=== PATIENT | female | born 1950 | race Caucasian/White ===

== ENCOUNTER 2016-12-14 08:30 | Emergency (ER) | payer OTHER ==
[~2016-12-14] VITALS: Ht 151.1 cm; Wt 65.0 kg
[2016-12-14 08:35] VITALS: TEMP 36.9; Ht 151.1 cm; Wt 65.0 kg
--- NOTE | 2016-12-14 09:21 | DIAGNOSTIC IMAGING REPORT ---
R ANKLE MIN 3 VIEWS ROUTINE CLINICAL HISTORY: Right ankle pain and swelling. Evaluate for fracture. COMPARISON: None FINDINGS: Note is made of an acute oblique mildly displaced distal right fibular fracture which extends from the level of the tibiotalar joint 2.3 cm proximally. There is also an acute minimally displaced fracture of the medial malleolus. No ankle mortise widening is identified. There is marked lateral ankle soft tissue swelling in mild medial ankle soft tissue swelling. IMPRESSION: 1. Acute mildly displaced oblique fracture of the distal right fibula and acute minimally displaced fracture of the medial malleolus. 2. No ankle mortise widening. 3. Marked lateral ankle soft tissue swelling. Electronically signed by: Minor Degroot M.D. 12/14/2016 9:20 AM Dictated Date/Time: 12/14/2016 9:18 AM
[2016-12-14] MEDS ORDERED: OXYCODONE HCL IR 5 MG TAB (IMMEDIATE RELEASE) PO STA (09:44)
[2016-12-14] MEDS ORDERED: OXYC1TAB3 PO (09:45)
--- NOTE | 2016-12-14 09:46 | EMERGENCY ROOM VISIT NOTE ---
ED Visit Note First contact with patient: 08:44 CHIEF COMPLAINT: Right ankle injury 2 hours ago HISTORY OF PRESENT ILLNESS: Patient is a 66-year-old white female who presents emergency department for evaluation of right ankle pain after an injury that occurred at work about an hour and half ago. 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 She states that she slipped on a wet floor and fell and the right ankle twisted. She reported hearing a popping sound at the time of the injury. She tried to get up and bear weight, but was completely unable to, and called for help from her coworkers. She was given ibuprofen 400 mg. She rates her pain a 3/10 presently, but states that it is worsening. She denies any other injuries related to the fall. No numbness or weakness of the foot. REVIEW OF SYSTEMS: Review of systems as per HPI. All other systems reviewed were negative. At least 6 systems reviewed. PMH: Electronic medical records are reviewed and summarized as above/below. See Problem List. SOCIAL HISTORY: Patient lives at home with her spouse. Employed. Former smoker. PHYSICAL EXAM: Vital Signs: Reviewed Nurses' notes. MENTAL STATUS: Patient is a pleasant, well-appearing 66-year-old white female who is awake and alert and sitting in a wheelchair in no acute distress MUSCULOSKELETAL: Examination of the right ankle show a soft tissue swelling, both medial and laterally, with a palpable joint effusion. She is tender over the medial and the lateral malleolus. No pain over the fifth metatarsal or the fibular head. Dorsalis pedis and posterior tibialis pulses are easily palpable. Sensation light touch is intact. She can wiggle and move her toes without difficulty. SKIN: Normal. NEUROVASCULAR: Sensation intact to pain and light touch, foot is warm and well- perfused, dorsalis pedis pulse is palpable. EMERGENCY DEPARTMENT COURSE: X-rays of the right ankle were obtained and consistent with a bimalleolar fracture. No ankle mortise widening was noted. Patient was placed in a short leg posterior and sugar tong Ortho-Glass splint. She was instructed on a nonweight bearing gait using crutches. She was medicated with oxycodone 10 mg orally in the emergency department. She will follow up with [facility] as they are covered on her worker's compensation panel. The patient rated her pain a 5/10 at discharge. Differential diagnosis includes ankle versus metatarsal fracture, sprain, dislocation, contusion, among others. Medication reconciliation: I attest that I have personally reviewed the patient' s current medication list. Blood pressure screening : Patient was found to have normal blood pressure on screening and does not require follow-up. R ANKLE MIN 3 VIEWS ROUTINE CLINICAL HISTORY: Right ankle pain and swelling. Evaluate for fracture. COMPARISON: None FINDINGS: Note is made of an acute oblique mildly displaced distal right fibular fracture which extends from the level of the tibiotalar joint 2.3 cm proximally. There is also an acute minimally displaced fracture of the medial malleolus. No ankle mortise widening is identified. There is marked lateral ankle soft tissue swelling in mild medial ankle soft tissue swelling. IMPRESSION: 1. Acute mildly displaced oblique fracture of the distal right fibula and acute minimally displaced fracture of the medial malleolus. 2. No ankle mortise widening. 3. Marked lateral ankle soft tissue swelling. Problem List Medical Problems: (1) Asthma Status: Chronic (2) Hypertension Status: Chronic Surgical Problems: (1) History of cholecystectomy Status: Resolved (2) History of herniorrhaphy Status: Resolved (3) History of tonsillectomy Status: Resolved Current/Historical Medications Scheduled Aspirin (Aspirin Ec), 81 MG PO DAILY Citalopram (Citalopram Hydrobromide), 1 TAB PO DAILY Levothyroxine Sodium (Synthroid), 1 TAB PO DAILY Lisinopril/Hctz (Zestoretic 20MG/25MG), 1 TAB PO DAILY Multivitamin (Multivitamin), 1 TAB PO DAILY Omeprazole (Prilosec), 20 MG PO DAILY Scheduled PRN Albuterol Hfa (Ventolin Hfa), 2-4 PUFFS INH Q6H PRN for SOB/Wheezing Oxycodone Immediate Rel Tab (Roxicodone Ir), 1-2 TAB PO Q4H PRN for Severe Pain Allergies Coded Allergies: No Known Allergies (Unverified , 12/14/16) Vital Signs Date Time Temp Pulse Resp B/P (MAP) Pulse Ox O2 Delivery O2 Flow Rate FiO2 12/14/16 10:36 61 16 139/85 95 12/14/16 08:35 36.9 63 20 141/75 97 Room Air Medications Administered Medications (Trade) Dose Ordered Sig/Tj Route Start Time Stop Time Status Last Admin Dose Admin Oxycodone HCl (Roxicodone Immediate Rel Tab) 10 mg NOW STAT PO 12/14/16 09:44 12/14/16 09:45 DC 12/14/16 10:34 10 MG Departure Information Impression Primary Impression: Bimalleolar fracture of right ankle Additional Impression: Work related injury Prescriptions Oxycodone Immediate Rel Tab (ROXICODONE IR) 5 Mg Tab 1-2 TAB PO Q4H Y for Severe Pain, #30 TAB For Initial Treatment Prov: Cony Ha PA 12/14/16 Referrals Oswaldo Miller D.O. (PCP) Patient Instructions My [facility] Additional Instructions DO NOT drive, drink alcohol, operate machinery, or perform dangerous activities today. You were given medications in the ER that can affect your ability to safely function or operate a vehicle. Oxycodone (OxyIR) 5mg: Take 1-2 pills every four hours for breakthrough pain. Avoid alcohol, operating machinery or dangerous equipment, working on ladders or roofs, DRIVING, or situations where being under the influence may be dangerous. It is recommended to use an ityw-jfx-syxswwr stool softener such as Colace, 100mg twice daily while taking this medication to avoid constipation. Acetaminophen(Tylenol) may be used for fever or pain. Use 1000mg every six hours as needed. Avoid using more than 3000mg in a 24 hour period. This medication can be taken if you need to drive, work, or perform activities which may be dangerous when taking narcotic pain medication. Ice compresses for 20 minutes at a time four times daily for 2-3 days. Use the crutches as instructed. Rest and elevate your injury. Do not get the splint wet. If your splint feels excessively tight, you have worsening pain, develop numbness or tingling, or your digits appear blue, loosen the roberto wrap. Then reapply the roberto wrap gently without removing the splint. If your symptoms are not quickly relieved return to the ER for re- evaluation. Continue current medications. Return to the ER immediately for any numbness, tingling, severe pain, extreme swelling in the extremity or as needed. Call [facility] today to arrange follow up for your injury. Problem Qualifiers Primary Impression: Bimalleolar fracture of right ankle Encounter type: initial encounter Fracture type: closed Qualified Codes: S82.841A - Displaced bimalleolar fracture of right lower leg, initial encounter for closed fracture
[2016-12-14] MEDS ORDERED: LISI-788 PO (09:59)
[2016-12-14] MEDS ORDERED: ASPI81TA28 PO (09:59)
[2016-12-14] MEDS ORDERED: VNTHFA/IN INH (09:59)
[2016-12-14] MEDS ORDERED: MULT-506 PO (09:59)
[2016-12-14] MEDS ORDERED: LEVO50TA PO (09:59)
[2016-12-14] MEDS ORDERED: CLX/20 PO (09:59)
[2016-12-14] MEDS ORDERED: PRLSR20 PO (09:59)
[2016-12-14 10:36] VITALS: BP 139/85; PULSE 61; O2SAT 95
[2016-12-16] MEDS ORDERED: LEVO25TA PO (07:38)
[2016-12-16] MEDS ORDERED: OXYC1TAB3 PO (07:38)
[2016-12-16] MEDS ORDERED: CLX20 PO (07:38)
[2016-12-17] MEDS ORDERED: OXYC-57 PO (15:44)
== END 2016-12-14 10:38 | disposition home or self-care (01) ==
LOC: C.EDB 08:31
DX: S82.841A Displaced bimalleolar fracture of right lower leg, initial encounter for closed fracture (principal); W01.0XXA Fall on same level from slipping, tripping and stumbling without subsequent striking against object, initial encounter; Y92.89 Other specified places as the place of occurrence of the external cause; Y99.0 Civilian activity done for income or pay; Z87.891 Personal history of nicotine dependence; J45.909 Unspecified asthma, uncomplicated; I10 Essential (primary) hypertension; Z90.49 Acquired absence of other specified parts of digestive tract; Z79.82 Long term (current) use of aspirin; Z79.899 Other long term (current) drug therapy

== ENCOUNTER → 2016-12-15 | Outpatient (CLI) | payer OTHER ==
[~2016-12-15] MED LIST: ASPI81TA28 PO; CLX/20 PO; CLX20 PO; LEVO25TA PO; LEVO50TA PO; LISI-788 PO; MULT-506 PO; OXYC-57 PO; OXYC1TAB3 PO; PRLSR20 PO; VNTHFA/IN INH
[2016-12-15 13:55] LABS: BASO % 0.1 %; BASO ABS # 0.01 K/uL (0-0.2); COMPLETE YES; EOS % 0.5 %; HEMATOCRIT 37.1 % (37-47); IG% 0.2 %; LYMPH % 13.4 %; LYMPH ABS # 1.08 K/uL (1.2-3.4); MEAN CELL VOLUME 86.3 fL (80-100); MEAN CORPUSCULAR HEMOGLOBIN 28.1 pg (25-34); MEAN CORPUSCULAR HGB CONC 32.6 g/dl (32-36); MEAN PLATELET VOLUME 10.7 fL (7.4-10.4); MONO % 8.2 %; NEUT % 77.6 %; PLATELET COUNT 253 K/uL (130-400); WHITE BLOOD COUNT 8.03 K/uL (4.8-10.8)
[2016-12-15 14:10] LABS: BLOOD UREA NITROGEN 17 mg/dl (7-18); BUN/CREATININE RATIO 21.5 (10-20); CALCIUM 9.6 mg/dl (8.5-10.1); CARBON DIOXIDE 30 mmol/L (21-32); CHLORIDE 100 mmol/L (98-107); CREATININE 0.78 mg/dl (0.60-1.20); GLUCOSE 120 mg/dl (70-99); POTASSIUM 3.8 mmol/L (3.5-5.1); SODIUM 135 mmol/L (136-145)
== END | disposition home or self-care (01) ==
LOC: C.LABBC 10:30
PROVIDERS: ATTEND Orthopaedic Surgery
DX: S82.841A Displaced bimalleolar fracture of right lower leg, initial encounter for closed fracture (principal); X58.XXXA Exposure to other specified factors, initial encounter

== ENCOUNTER → 2016-12-17 | Day surgery (SDC) | payer OTHER ==
[2016-12-16 07:38] VITALS: Ht 151.1 cm; Wt 65.5 kg
[~2016-12-17] VITALS: Ht 151.1 cm; Wt 65.5 kg
[~2016-12-17] MED LIST changes: +ATROPINE SULFATE 0.1 MG/ML 5ML SYR IV PRN; +BUPIVACAINE/EPINEPHRINE 0.25% 1:200,000 30 ML VIAL ONE; +CEFAZOLIN 2000 MG/60 ML D5W IV SCH; -CLX/20 PO; +DEXAMETHASONE SOD INJ 4 MG/ML VIAL ONE; +EpHEDrine SULFATE INJ 50 MG/ML AMP IV PRN; +FENTANYL CITRATE INJ 50 MCG/1 ML 2 ML VIAL IV PRN; +FENTANYL CITRATE INJ 50 MCG/1 ML 2 ML VIAL ONE; +LACTATED RINGER'S 1000ML 1,000 ML IV SCH; -LEVO50TA PO; +LIDOCAINE HCL 2% 2 ML VIAL (20MG/ML) ONE; +MIDAZOLAM HCL 1 MG/ML 2ML VIAL ONE; +ONDANSETRON INJ 2 MG/ML 2 ML VIAL IV PRN; +ONDANSETRON INJ 2 MG/ML 2 ML VIAL ONE; +OXYCODONE/ACETAMINOPHEN 5-325 TAB PO PRN; +PROMETHAZINE HCL INJ 6.25 MG in SODIUM CHLORIDE 0.9% 50ML 50 ML IV PRN; +PROPOFOL IV EMULSION 10 MG/ML 20 ML VIAL IV ONE; +SODIUM CHLORIDE 0.9% 1000ML 1,000 ML IV SCH
--- NOTE | 2016-12-17 11:10 | History & Physical Bridge - SC ---
H&P Re-Evaluation Bridge Note: I have examined the patient, reviewed the History & Physical and in the interval since the performance of the History & Physical I have noted the following changes of clinical significance: No changes noted
[2016-12-17 15:45] VITALS: TEMP 36.6
--- NOTE | 2016-12-17 15:46 | Discharge Instructions-SurgCtr ---
Discharge Instructions Date of Service Dec 17, 2016. Visit Reason for Visit: Closed Right Bimalleolar Fracture Discharge Discharge Diagnosis / Problem: SAME ABOVE Discharge Goals Goal(s): Decrease discomfort, Improve function Medications Stopped Medications Name(s): Only took thyroid medication this morning. Restart Stopped Medication(s): MAY RESTART MEDICATIONS 12/17/2016 Activity Recommendations Activity Limitations: as noted below Lifting Limitations: until after follow-up appointment Exercise/Sports Limitations: until after follow-up appointment Weightbearing Status: Right non-weightbearing Anesthesia . Post Anesthesia Instructions: If you have had General Anesthesia or IV Sedation: * Do not drive today. * Resume driving when surgeon permits. * Do not make important decisions or sign legal documents today. * Call surgeon for: 1. Temperature elevations greater than 101 degrees F. 2. Uncontrollable pain. 3. Excessive bleeding. 4. Persistent nausea and vomiting. 5. Medication intolerance (nausea, vomiting or rash). * For nausea and vomiting use only clear liquids such as: tea, soda, bouillon until nausea subsides, then gradually increase diet as tolerated. * If you have any concerns or questions, call your surgeon's office. If physician is unavailable and it is an emergency, call 911 or go to the nearest emergency room. . Instructions / Follow-Up Instructions / Follow-Up MEDICATIONS: * Resume previous medications unless instructed otherwise by your surgeon. * Always take pain medication on a full stomach or with food to avoid upset stomach. * Do not drink alcohol or drive while taking narcotics. * Ibuprofen or Tylenol may be taken if narcotic not needed. SPECIAL CARE INSTRUCTIONS: __ None _X_ Keep extremity elevated and iced x 48 hours; apply ice 20-30 minutes 8-10 times/day. May remove at night. _X_ Crutches __ May discard when able __ Brace/Post-op shoe __ 24 hrs/day __ Remove at night _X_ Dressing _X_ Maintain until seen in office, may shower with plastic over site __ Remove dressings in 24-48 hours and then may shower __ Cover incisions with band-aids after showering __ Do not remove steri-strips Call physician if chills or temperature rises above 102 degrees or pain unrelieved by prescribed pain medications. Office [phone] Diet Recommendations Home Diet: no limitations Fluid Restriction: None Procedures Procedures Performed: Right Open Reduction Internal Fixation Bimalleolar Fracture Pending Studies Studies pending at discharge: no Work Instructions Return To Work: after follow-up Medical Emergencies . Who to Call and When: Medical Emergencies: If at any time you feel your situation is an emergency, please call 911 immediately. . Non-Emergent Contact Non-Emergency issues call your: Primary Care Provider Call Non-Emergent contact if: you have a fever, temperature is above 101.5 . . "Provider Documentation" section prepared by Dustin De La O. .
--- NOTE | 2016-12-17 15:48 | OPERATIVE REPORT ---
DATE OF OPERATION: 12/17/2016 PREOPERATIVE DIAGNOSIS: Right bimalleolar ankle fracture. POSTOPERATIVE DIAGNOSIS: Same. PROCEDURE: Open reduction and internal fixation of right bimalleolar ankle fracture. SURGEON: Dr. Greg Hemphill. DISPERSION MIXER: Bishnu De La O PA-C, whose assistance was necessary for positioning of the ankle and helping with instrumentation. ANESTHESIA: General with a right regional block. COMPLICATIONS: None. CONDITION: Stable to PACU. IMPLANTS USED: I used a Synthes 1/3 tubular locking plate laterally and two 4-0 cannulated screws medially. INDICATIONS: Bri is a pleasant 66-year-old female who twisted and fractured her right ankle several days ago. She went to the Emergency Room and came to my office and radiographs demonstrated a mildly displaced bimalleolar ankle fracture. She elected to undergo an open reduction and internal fixation. DESCRIPTION OF PROCEDURE: On 12/17/2016, she arrived at [facility] for the above procedure. She was seen in the preoperative holding area and the operative extremity was identified and signed. She was given a preoperative antibiotic and a right regional block. She was taken back to the operating room, laid on the table in supine position and put under general anesthesia. The right ankle was then prepped and draped in sterile fashion. Time-out was done and the patient and operative extremity was properly identified. A longitudinal incision was made over the distal fibula. Dissection was taken down through the fascia with care not to disrupt the intermediate branch of the peroneal nerve. The fracture was exposed. The fracture was easily reduced. An 8-hole 1/3 tubular plate was placed. The distal end of the plate was bent over the distal fibula. Locking screw was placed both proximally and distally. X-ray was taken and I was happy with the overall reduction of the fracture and the alignment of the plate. Three more locking screws were placed proximally and 1 more locking screws were placed distally. This gave good fixation. Attention was then turned to the medial side. A curvilinear incision was made over the medial malleolus. Dissection was taken down to the fracture and a clamp was used to reduce the medial malleolar fragment. Two K wires were placed and position was checked under fluoroscopy. A 4-0 long threaded cannulated screw was placed perpendicular to the fracture. This gave good fixation. Two screws were placed in total. The K wires were then removed. Final x-rays showed anatomic reduction of the fracture. A stress test was done and there was no widening of the medial compartment and no widening of the syndesmosis. The wounds were then irrigated and closed with 3-0 Vicryl suture and ellie. She was then placed in a trauma splint, extubated, transferred to a [facility] and taken to the postanesthesia care unit in stable condition. She tolerated the procedure well. I attest to the content of the Intraoperative Record and any orders documented therein. Any exception s are noted below.
--- NOTE | 2016-12-17 16:11 | DIAGNOSTIC IMAGING REPORT ---
INTRAOPERATIVE FLUOROSCOPIC IMAGES OF THE RIGHT ANKLE CLINICAL HISTORY: ORIF RT BIMALLEOLAR FX COMPARISON STUDY: Right ankle radiographs December 14, 2016. FLUOROSCOPY TIME: 23.5 seconds. FINDINGS: 2 fluoroscopic images demonstrate placement of a right fibular plate and screws. There are also 2 medial malleolar screws. Alignment of the distal right fibular and tibial fractures has improved and is near anatomic. Hardware is intact. There is no ankle mortise widening. IMPRESSION: Expected findings following distal right tibial and fibular internal fixation. Electronically signed by: Minor Degroot M.D. 12/17/2016 4:10 PM Dictated Date/Time: 12/17/2016 4:09 PM
--- NOTE | 2016-12-17 16:17 | [facility] Post Operative Brief Note ---
Immediate Operative Summary Operative Date Dec 17, 2016. Pre-Operative Diagnosis Closed Right Bimalleolar Fracture Post-Operative Diagnosis same as preop Procedure(s) Performed Right Open Reduction Internal Fixation Bimalleolar Fracture Surgeon Dr. Hemphill Oracle Manager Surgeon(s) KARIS Morton Estimated Blood Loss 5 mL Findings as above Specimens none per surgeon Complication(s) None Disposition Recovery Room / PACU
--- NOTE | 2016-12-17 16:21 | Anesthesiology Progress Note ---
Anesthesia Post Op Note Date & Time Dec 17, 2016 at 16:21 Vital Signs Pain Intensity: 0 Vital Signs Past 12 Hours Date Time Temp Pulse Resp B/P (MAP) Pulse Ox O2 Delivery O2 Flow Rate FiO2 12/17/16 15:45 36.6 78 12 111/65 (80) 95 Room Air 12/17/16 14:27 72 16 12/17/16 14:27 73 16 98 12/17/16 14:22 67 15 100 12/17/16 14:22 67 15 12/17/16 14:20 119/62 12/17/16 14:17 64 13 98 12/17/16 14:17 64 13 12/17/16 14:15 121/60 12/17/16 14:12 67 11 12/17/16 14:12 67 11 99 12/17/16 14:10 119/53 12/17/16 11:22 37.3 62 18 116/73 (87) 97 Room Air Notes Mental Status: alert / awake / arousable, participated in evaluation Pt Amnestic to Procedure: Yes Nausea / Vomiting: adequately controlled Pain: adequately controlled Airway Patency, RR, SpO2: stable & adequate BP & HR: stable & adequate Hydration State: stable & adequate Anesthetic Complications: no major complications apparent
[2016-12-17 16:30] VITALS: BP 109/64; PULSE 73; O2SAT 96
== END | disposition home or self-care (01) ==
LOC: X.SURG 09:49
PROVIDERS: ATTEND Orthopaedic Surgery
DX: S82.841A Displaced bimalleolar fracture of right lower leg, initial encounter for closed fracture (principal); X50.0XXA Overexertion from strenuous movement or load, initial encounter; I10 Essential (primary) hypertension; J45.909 Unspecified asthma, uncomplicated; K21.9 Gastro-esophageal reflux disease without esophagitis; Z90.49 Acquired absence of other specified parts of digestive tract; Z85.41 Personal history of malignant neoplasm of cervix uteri; Z82.49 Family history of ischemic heart disease and other diseases of the circulatory system; Z83.3 Family history of diabetes mellitus; Z80.1 Family history of malignant neoplasm of trachea, bronchus and lung